=== PATIENT | female | born 1965 | race Caucasian/White ===

== ENCOUNTER → 2016-07-22 | Outpatient (CLI) | payer OTHER | END | disposition home or self-care (01) | LOC: CFH 08:39 | PROVIDERS: ATTEND Family Medicine | DX: Z12.31 Encounter for screening mammogram for malignant neoplasm of breast (principal) | CPT/HCPCS: G0202 ==

== ENCOUNTER → 2017-02-24 | Outpatient (CLI) | payer OTHER | END | disposition home or self-care (01) | LOC: CFH 10:56 | PROVIDERS: ATTEND Family Medicine | DX: M47.22 Other spondylosis with radiculopathy, cervical region (principal) | CPT/HCPCS: 72050 ==

== ENCOUNTER → 2017-04-10 | Outpatient (CLI) | payer OTHER | END | disposition home or self-care (01) | LOC: CFH 10:54 | PROVIDERS: ATTEND Family Medicine | DX: M48.07 Spinal stenosis, lumbosacral region (principal); M54.16 Radiculopathy, lumbar region | CPT/HCPCS: 72110 ==

== ENCOUNTER → 2017-08-04 | Outpatient (CLI) | payer OTHER | LOC: CFH 10:35 | PROVIDERS: ATTEND Family Medicine | DX: Z12.31 Encounter for screening mammogram for malignant neoplasm of breast (principal) | CPT/HCPCS: 77067 ==

== ENCOUNTER → 2018-01-29 | Outpatient (CLI) | payer OTHER | END | disposition home or self-care (01) | LOC: CFH 07:32 | PROVIDERS: ATTEND Family Medicine | DX: N88.8 Other specified noninflammatory disorders of cervix uteri (principal) | CPT/HCPCS: 76830 ==